=== PATIENT | male | born 1980 | race Caucasian/White ===

== ENCOUNTER → 2017-01-27 | Outpatient (CLI) | payer OTHER | LOC: RAD 09:48 | DX: M54.16 Radiculopathy, lumbar region (principal) | CPT/HCPCS: 72100 ==

== ENCOUNTER 2021-03-25 14:59 | Emergency (ER) | payer OTHER | END 2021-03-25 16:15 | disposition home or self-care (01) | LOC: ER1 14:59 | DX: S61.313A Laceration without foreign body of left middle finger with damage to nail, initial encounter (principal); W27.2XXA Contact with scissors, initial encounter | CPT/HCPCS: 12001; 90715; 99282; 99283 ==

== ENCOUNTER 2021-03-30 09:47 | Emergency (ER) | payer OTHER | END 2021-03-30 13:45 | disposition home or self-care (01) | LOC: ER1 09:47 | DX: M79.81 Nontraumatic hematoma of soft tissue (principal) | CPT/HCPCS: 93971; 99283 ==